=== PATIENT | male | born 1995 | race Two or more races ===

== ENCOUNTER 2018-08-06 11:03 | Emergency (ER) | payer SELFPAY ==
[2018-08-06 11:34] VITALS: BP 142/73
== END 2018-08-06 14:35 | disposition home or self-care (01) ==
LOC: ER 11:03
DX: S46.912A Strain of unspecified muscle, fascia and tendon at shoulder and upper arm level, left arm, initial encounter (principal); W51.XXXA Accidental striking against or bumped into by another person, initial encounter; Y93.51 Activity, roller skating (inline) and skateboarding; Y99.8 Other external cause status; Y92.89 Other specified places as the place of occurrence of the external cause
CPT/HCPCS: 73030

== ENCOUNTER 2023-03-28 05:03 | Emergency (ER) | payer MEDICAID ==
[~2023-03-28] VITALS: Ht 182.9 cm; Wt 102.3 kg
[2023-03-28 07:11] VITALS: BP 154/92; PULSE 86; RESP 14; TEMP 97.1; O2SAT 100
[2023-03-28] MEDS ORDERED: KETOROLAC TROMETH 60MG/2ML VIAL IM ONE (07:15)
[2023-03-28] MEDS ORDERED: IBUP-1456 PO (07:37)
[2023-03-28] MEDS ORDERED: METH-1182 PO (07:37)
== END 2023-03-28 07:44 | disposition home or self-care (01) ==
LOC: ER 05:03
DX: S39.012A Strain of muscle, fascia and tendon of lower back, initial encounter (principal); X50.1XXA Overexertion from prolonged static or awkward postures, initial encounter; Y93.89 Activity, other specified; Y92.89 Other specified places as the place of occurrence of the external cause; Y99.8 Other external cause status
CPT/HCPCS: 72100; 96372; 99283; J1885

== ENCOUNTER 2024-08-29 18:13 | Emergency (ER) | payer MEDICAID ==
[~2024-08-29] VITALS: Ht 182.9 cm; Wt 100.0 kg
[~2024-08-29 18:13] MED LIST: IBUP-1456 PO; METH-1182 PO
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
[2024-08-29 18:42] LABS: Base Excess -0.5 mmol/L (-2.0-3.0)
[2024-08-29 18:43] LABS: Basophils # (auto) 0.1 10 ^3/uL (0-0.2); Basophils % (auto) 0.5 % (0.0-2.0); Eosinophils # (auto) 0.1 10 ^3/uL (0-0.8); Eosinophils % (auto) 1.5 % (0.0-7.0); Lymphocytes # (auto) 1.8 10 ^3/uL (0.4-5.4); Lymphocytes % (auto) 18.5 % (10.0-50.0); Mean Corpuscular Hemoglobin 29.8 pg (28.0-32.0); Mean Corpuscular Volume 87.6 fL (80.0-100.0); Monocytes # (auto) 0.8 10 ^3/uL (0-1.3); Monocytes % (auto) 8.3 % (0.0-12.0); Neutrophils # (auto) 6.8 10 ^3/uL (1.6-8.6); Neutrophils % (auto) 71.2 % (37.0-80.0); Platelet Count (auto) 335 10^3/uL (140-450); Red Blood Cells 5.03 10^6/uL (4.5-5.90); Red Cell Distribution Width 12.8 % (11.8-14.3); White Blood Cell 9.6 10^3/uL (4.4-10.8)
[2024-08-29] MEDS: ALBUTEROL SULF 2.5 MG/0.5ML(0.5%) NEB SOLN NEB ONE (18:46)
[2024-08-29 18:50] LABS: Potassium 4.1 mmol/L (3.5-5.1); Sodium 143 mmol/L (136-145)
[2024-08-29 18:51] LABS: Anion Gap 11 (5-15); Carbon Dioxide 23 mmol/L (20-31)
[2024-08-29 18:56] LABS: BUN/Creatinine Ratio 12.7 (10.0-20.0); Blood Urea Nitrogen 13 mg/dL (9-23); Glucose 105 mg/dL (74-106)
[2024-08-29 19:01] LABS: Calcium 10.8 mg/dL (8.7-10.4); Chloride 109 mmol/L (98-107)
--- NOTE | 2024-08-29 19:28 | DVH ---
XY CHEST TWO VIEWS ROUTINE CLINICAL HISTORY: cp sob COMPARISON: None TECHNIQUE: Frontal and lateral view of the chest was obtained FINDINGS: Lines and Tubes: None Lungs: No focal consolidation. Pleura: No effusion. No pneumothorax. Cardiomediastinal contours: Unremarkable Bones: No acute osseous abnormality. IMPRESSION: 1. No acute cardiopulmonary disease. HS:Y
[2024-08-29] MEDS ORDERED: ALBUAER3 IN (20:32)
[2024-08-29 20:42] VITALS: BP 139/83; PULSE 82; RESP 17; TEMP 98.6; O2SAT 99
== END 2024-08-29 20:43 | disposition home or self-care (01) ==
LOC: EDBD 18:13 → EDUNIT# 18:13 → ER 18:13
DX: R06.02 Shortness of breath (principal); X08.8XXA Exposure to other specified smoke, fire and flames, initial encounter; Y93.89 Activity, other specified; Y92.89 Other specified places as the place of occurrence of the external cause; Y99.8 Other external cause status
CPT/HCPCS: 36415; 36600; 71046; 80048; 82805; 84484; 85025; 94640